=== PATIENT | male | born 1980 | race African-American/Black ===

== ENCOUNTER 2017-07-06 15:16 | Outpatient (CLI) | payer OTHER ==
--- NOTE | 2017-07-06 20:01 | RAD ---
RIGHT HAND: 07/06/17 Three views. HISTORY: Right hand pain. The carpals appear normally aligned. Metacarpophalanges are intact. The MCP joints appear unremarkab le. No erosive change. no significant degenerative change. The IP joints also appear unremarkable. IMPRESSION: Unremarkable right hand. POS: [facility]
== END 2017-07-06 15:17 | disposition home or self-care (01) ==
LOC: SCSRAD 15:16
PROVIDERS: ATTEND Nurse Practitioner Family
DX: M79.641 Pain in right hand (principal)

== ENCOUNTER 2019-09-20 16:22 | Outpatient (CLI) | payer OTHER ==
--- NOTE | 2019-09-20 16:55 | RAD ---
XR Elbow Rt 4 View STANDARD HISTORY: Right elbow pain FINDINGS: No fracture or dislocation is identified. Mild degenerative changes are present.
== END 2019-09-20 16:23 | disposition home or self-care (01) ==
LOC: SCSRAD 16:22
PROVIDERS: ATTEND Nurse Practitioner Family
DX: M25.521 Pain in right elbow (principal)